=== PATIENT | female | born 1975 | race American Indian/Alaskan Native ===

== ENCOUNTER 2017-01-16 12:01 | Emergency (ER) | payer SELFPAY ==
[2017-01-16 14:55] VITALS: BP 113/68
[2017-01-16] MEDS ORDERED: PEPCID PO ONE (15:39)
--- NOTE | 2017-01-16 15:40 | Emergency Department Report ---
ED Rash HPI - HPI Chief Complaint: Skin Rash Stated Complaint: RASH Time Seen by Provider: 01/16/17 15:37 Duration: 2 Days Location: Head, Neck, Chest, Back, Abdomen, Upper Extremities, Lower Extremities Suspected Cause: Food Rash Symptoms: Yes Itching, No Facial Swelling, No Tongue/Oral Swelling, No Breathing Difficulties, No Choking Sensation, No Wheezing/Dyspnea, No Peeling, No Blistering, No Fever, No Lightheaded, No Malaise, No Myalgias Severity: moderate Other History: Patient states that she ate [place] food with seafood on Saturday night and woke up with a red, itchy rash on her left arm that slowly started to spread to her neck, bilateral arms, chest, abdomen, back and bilateral legs; has been taking benadryl and using triamcinolone ointment on it, has helped a little; denies trouble breathing or swallowing and SOB ED Review of Systems ROS: Stated complaint: RASH Other details as noted in HPI Constitutional: denies: chills, diaphoresis, fever, malaise, weakness Eyes: denies: eye discharge ENT: denies: throat pain, congestion Respiratory: denies: cough, shortness of breath, wheezing Cardiovascular: denies: chest pain, palpitations Gastrointestinal: denies: abdominal pain, nausea, vomiting, diarrhea Musculoskeletal: denies: back pain, arthralgia, myalgia Skin: rash, pruritus Neurological: denies: headache, weakness ED Past Medical Hx - Past Medical History Previous Medical History?: No - Surgical History Past Surgical History?: No - Social History Smoking Status: Never Smoker Substance Use Type: Alcohol - Medications Home Medications: Home Medications Medication Instructions Recorded Confirmed Last Taken Type hydrOXYzine HCL [Atarax] 25 mg PO Q6HR PRN #14 tablet 01/16/17 Unknown Rx predniSONE [Deltasone] 50 mg PO QDAY #5 tab 01/16/17 Unknown Rx Rash Exam - Exam General: Vital signs noted. No distress. Alert and acting appropriately. HEENT: No Periorbital Edema, No Conjuctival Injection, No Chemosis, No Perioral Edema, No Tongue Edema, No Uvular Edema, No Compromised Airway, No Drooling Lungs: Yes Good Air Exchange, No Wheezes, No Ronchi, No Stridor, No Cough, No Labored Respirations, No Retractions, No Use of Accessory Muscles, No Other Abnormal Lung Sounds Heart: Yes Regular, No Murmur Skin: Yes Urticarial Rash (on left UE, abdomen, neck, back, chest), Yes Maculopapular Rash (face, bilateral LE and right UE), Yes Erythema, Yes Edema, No Morbilliform rash, No Bulla(e), No Excoriations, No Weeping, No Tenderness, No Encrustations Other: Positive: Neurologic Normal, Musculoskeletal Normal ED Course Vital Signs 01/16/17 01/16/17 12:10 14:54 Temperature 98.1 F 97.9 F Pulse Rate 68 81 Respiratory 16 16 Rate Blood Pressure 126/84 Blood Pressure 113/68 [Right] O2 Sat by Pulse 100 97 Oximetry - Reevaluation(s) Reevaluation #1: 01/16/17 15:43 Medicated with solu medrol IM and pepcid PO Reevaluation #2: 01/16/17 16:26 Patient states she feels little better, pruritis decreased, rash a little less red and prominent ED Medical Decision Making - Medical Decision Making Will send home with oral steroids and atarax, gave performance improvement specialist referral and told her to follow up, avoid seafood, she verbalized understanding Critical care attestation.: If time is entered above; I have spent that time in minutes in the direct care of this critically ill patient, excluding procedure time. ED Disposition Clinical Impression: Urticaria Allergic reaction Qualifiers: Encounter type: initial encounter Qualified Code(s): T78.40XA - Allergy, unspecified, initial encounter Disposition: DISCHARGED TO HOME OR SELFCARE Is pt being admited?: No Does the pt Need Aspirin: No Condition: Stable Instructions: Urticaria (ED), Food Allergy (ED) Prescriptions: hydrOXYzine HCL [Atarax] 25 mg PO Q6HR PRN #14 tablet PRN Reason: Itching predniSONE [Deltasone] 50 mg PO QDAY #5 tab Referrals: PRIMARY CAREMD [Primary Care Provider] - 3-5 Days DAVID CASTILLO MD [Referring] - 3-5 Days Time of Disposition: 16:31 Print Language: TOGOLESE
== END 2017-01-16 16:51 | disposition home or self-care (01) ==
LOC: ED 12:01
DX: T78.40XA Allergy, unspecified, initial encounter (principal); L29.9 Pruritus, unspecified; Y92.9 Unspecified place or not applicable
CPT/HCPCS: 96372; 99282; J2930